=== PATIENT | female | born 1955 | race Caucasian/White ===

== ENCOUNTER 2018-04-17 14:14 | Outpatient (CLI) | payer BC ==
--- NOTE | 2018-04-17 15:49 | MMO ---
BILATERAL SCREENING MAMMOGRAM: Date: 04/17/18 HISTORY: 62-year-old female. Routine screening mammography. COMPARISON: 01/02/14, 02/11/15, 03/30/16, 04/11/17. TECHNIQUE: CC and MLO views of both breasts are submitted for interpretation. This patient's mammogram was reviewed with the assistance of computer-aided detection. FINDINGS: The breasts are composed of scattered fibroglandular tissue. Bilaterally, no suspicious dominant mass , architectural distortion, or suspicious calcifications. Benign-appearing calcification in the right breast. IMPRESSION: BIRADS 2: Benign Finding(s) RECOMMENDATION: Annual mammogram. POS: JAYANT
== END 2018-04-17 14:15 | disposition home or self-care (01) ==
LOC: SCSMAMMO 14:14
PROVIDERS: ATTEND Obstetrics & Gynecology
DX: Z12.31 Encounter for screening mammogram for malignant neoplasm of breast (principal)
CPT/HCPCS: 77067